=== PATIENT | male | born 1955 | race African-American/Black ===

== ENCOUNTER 2017-01-16 12:52 | Inpatient (IN) | payer MEDICAID, OTHER ==
[~2017-01-16] VITALS: Ht 185.4 cm; Wt 97.1 kg
[2017-01-16 13:46] LABS: HEMATOCRIT 45.7 % (41-53); MEAN CORPUSCULAR HGB CONC 32.9 G/dL (31.0-37.0); MEAN CORPUSCULAR VOLUME 76 fL (80-100); PLATELET COUNT (AUTO) 301 K/uL (150-450); RED BLOOD CELL COUNT(AUTO) 6.03 MIL/uL (4.50-5.90); WHITE BLOOD COUNT (AUTO) 6.7 K/uL (4.5-11.0)
[2017-01-16 13:54] LABS: ANION GAP 9 mmol/L (8-16); CALCIUM, TOTAL 9.4 mg/dL (8.8-10.5); CARBON DIOXIDE 25 mmol/L (22-29); CHLORIDE 102 mmol/L (98-107); CREATININE 1.04 mg/dL (0.60-1.30); GLOMERULAR FILTR. RATE CALC > 60 mL/min (>60); POTASSIUM 3.7 mmol/L (3.5-5.1); SODIUM SERUM 136 mmol/L (136-145); UREA NITROGEN, BLOOD 9 mg/dL (7-18)
[2017-01-16 14:00] LABS: ALANINE AMINOTRANSFERASE 38 U/L (12-78); ALBUMIN 4.4 g/dL (3.4-5.0); ASPARTATE AMINOTRANSFERASE 23 U/L (15-37); BILIRUBIN,TOTAL 0.3 mg/dL (0.1-1.0); TOTAL PROTEIN, SERUM 8.5 g/dL (6.4-8.2)
[2017-01-16 14:09] LABS: BAND NEUTROPHILS % (MANUAL) 5 % (1-5); LYMPHOCYTES % (MANUAL) 55 % (22-44); RBC MORPHOLOGY COMMENT ABNORMAL RBC MORPH; TOTAL CELLS COUNTED 100
[2017-01-16] MEDS ORDERED: MAGNESIUM HYDROXIDE SUSPENSION 30 ML UDCUP PO PRN (15:30)
[2017-01-16] MEDS ORDERED: ZOLPIDEM TARTRATE 10 MG TABLET PO PRN (15:30)
[2017-01-16] MEDS ORDERED: ACETAMINOPHEN 325 MG TABLET PO PRN ×2 (15:30→21:45)
[2017-01-16] MEDS ORDERED: MAG HYDROX/AL HYDROX/SIMETH ES 30 ML SUSPENSION UDCUP PO PRN (15:30)
[2017-01-16] MEDS: HALOPERIDOL 5 MG TABLET PO PRN (16:08)
[2017-01-16] MEDS: LORazepam 2 MG TABLET PO PRN (16:08)
[2017-01-16 21:46] VITALS: BP 154/92
[2017-01-16 22:56] LABS: APPEARANCE,URINE CLEAR (CLEAR); GLUCOSE, URINE (UA) NEGATIVE (NEGATIVE); KETONES,URINE NEGATIVE (NEGATIVE); LEUKOCYTE ESTERASE ,URINE NEGATIVE (NEGATIVE); OCCULT BLOOD,URINE NEGATIVE (NEGATIVE); PH,URINE 5.5 (5.0-8.0); PROTEIN,URINE NEGATIVE (NEGATIVE)
[2017-01-16 23:01] LABS: ADD UA MICROSCOPIC NO
[2017-01-17 06:53] LABS: CHOL/HDL RATIO 4.1 (4.2-7.3)
[2017-01-17] MEDS ORDERED: LOPERAMIDE HCL 2 MG CAPSULE PO PRN (07:45)
[2017-01-17] MEDS ORDERED: ONDANSETRON HCL 4 MG TABLET PO PRN (07:45)
[2017-01-17] MEDS ORDERED: BACITRACIN 28.4 GM OINTMENT TP PRN (07:45)
[2017-01-17] MEDS ORDERED: PETROLATUM,WHITE 71 GM JELLY TP PRN (07:45)
[2017-01-17] MEDS ORDERED: ALBUTEROL SULFATE HFA 90 MCG/PUFF 8 GM INHALER IH PRN (07:45)
[2017-01-17] MEDS ORDERED: CloNIDine HCL 0.1 MG TABLET PO PRN (07:45)
[2017-01-17] MEDS ORDERED: BENZOCAINE/MENTHOL LOZENGE [8 LOZENGES/PACKET] MM PRN (08:00)
[2017-01-17 08:10] VITALS: BP 128/90
[2017-01-17] MEDS: LISINOPRIL 10 MG TABLET PO SCH (10:05)
[2017-01-17] MEDS: HALOPERIDOL 5 MG TABLET PO PRN (11:50)
[2017-01-17 19:31] VITALS: BP 141/99
[2017-01-17] MEDS: MIRTAZAPINE 15 MG TABLET PO SCH (20:13)
[2017-01-17] MEDS: RisperiDONE 1 MG TABLET PO SCH (20:13)
[2017-01-17 22:57] LABS: GLUCOSE COMMENT 1 FASTING; GLUCOSE,POINT OF CARE 113 MG/DL (70-110)
[2017-01-18] MEDS: LORazepam 2 MG TABLET PO PRN (06:26)
[2017-01-18 09:00] VITALS: BP 117/81
[2017-01-18] MEDS: LISINOPRIL 10 MG TABLET PO SCH (10:00)
[2017-01-18 16:01] VITALS: BP 125/73
[2017-01-18] MEDS: IBUPROFEN 600 MG TABLET PO PRN (16:02)
[2017-01-18 17:01] VITALS: BP 120/70
[2017-01-18] MEDS: MIRTAZAPINE 15 MG TABLET PO SCH (20:58)
[2017-01-18] MEDS: RisperiDONE 1 MG TABLET PO SCH (20:58)
[2017-01-18] MEDS ORDERED: SIMVASTATIN 10 MG TABLET PO SCH (21:00)
[2017-01-19] MEDS: LISINOPRIL 10 MG TABLET PO SCH (09:52)
[2017-01-19 10:20] VITALS: BP 123/82
[2017-01-19] MEDS: IBUPROFEN 600 MG TABLET PO PRN (10:20)
[2017-01-19] MEDS ORDERED: RISP1TAB89 PO (18:34)
[2017-01-19] MEDS ORDERED: MIRT15 PO (18:36)
== END 2017-01-19 19:10 | disposition home or self-care (01) | DRG 750 ==
LOC: EMS 12:58 → 3EI 20:42
PROVIDERS: ADMIT Psychiatry & Neurology Psychiatry; ATTEND Psychiatry & Neurology Psychiatry
DX: F25.0 Schizoaffective disorder, bipolar type (principal); Z91.14 Patient's other noncompliance with medication regimen; I10 Essential (primary) hypertension; F14.10 Cocaine abuse, uncomplicated; E78.5 Hyperlipidemia, unspecified; G47.00 Insomnia, unspecified; K21.9 Gastro-esophageal reflux disease without esophagitis; K59.00 Constipation, unspecified; Z71.51 Drug abuse counseling and surveillance of drug abuser
CPT/HCPCS: 82962; 99285; G0480